=== PATIENT | male | born 1940 | race Caucasian/White ===

== ENCOUNTER 2016-06-15 10:23 | Emergency (ER) | payer BC ==
[2015-11-04 14:21] VITALS: Ht 177.8 cm; Wt 81.6 kg
[~2016-06-15] VITALS: Ht 177.8 cm; Wt 81.6 kg
[~2016-06-15 10:23] MED LIST: CLOT45CR TP; FLEC50TA2 PO; FLUT1DIS3 INH; LISI10TA5 PO; NAPR-238 PO; TAMS-11 PO; TERB250T35 PO
[2016-06-15 10:25] VITALS: BP 117/81; PULSE 95; RESP 18; TEMP 97.8; O2SAT 97
[2016-06-15] MEDS ORDERED: OMEP40CA33 PO (10:51)
[2016-06-15] MEDS ORDERED: POTA1POW11 MC (10:51)
[2016-06-15] MEDS ORDERED: ASPI-1063 PO (10:51)
[2016-06-15] MEDS ORDERED: FERR140T PO (10:51)
[2016-06-15] MEDS ORDERED: CYAN50004 PO (10:51)
[2016-06-15 11:17] LABS: BASOPHILS % (AUTO) 0.2 % (0.0-2.0); EOSINOPHILS # (AUTO) 0.2 K/uL (0.0-0.4); EOSINOPHILS % (AUTO) 2.5 % (0.0-4.0); HEMATOCRIT 27.9 % (36-54); HEMOGLOBIN 9.3 g/dL (14.0-18.0); LYMPHOCYTES # (AUTO) 2.2 K/uL (1.0-5.5); LYMPHOCYTES % (AUTO) 22.4 % (20.5-51.5); MEAN CORPUSCULAR HEMOGLOBIN 31 pg (27-31); MEAN CORPUSCULAR HGB CONC 34 % (32-36); MEAN CORPUSCULAR VOLUME 93 fL (79.0-98.0); MONOCYTES # (AUTO) 0.8 K/uL (0.0-1.0); MONOCYTES % (AUTO) 7.8 % (1.7-9.3); NEUTROPHILS # (AUTO) 6.8 K/uL (1.8-7.7); NEUTROPHILS % (AUTO) 67.1 % (40.0-70.0); PLATELET COUNT (AUTO) 344 K/uL (130-430); RED BLOOD CELL COUNT(AUTO) 2.98 MIL/uL (4.2-6.2); RED CELL DISTRIBUTION WIDTH 13.5 % (9.0-15.0)
[2016-06-15 11:29] LABS: INR 1.1 (0.80-1.20); PROTHROMBIN TIME 11.4 SECS (9.5-12.5)
[2016-06-15 11:31] LABS: ANION GAP 11 (5-15); CHLORIDE 105 mmol/L (98-107); CREATININE 0.96 mg/dL (0.55-1.30); GLUCOSE 100 mg/dL (70-99); POTASSIUM 4.6 mmol/L (3.5-5.1); SODIUM SERUM 139 mmol/L (136-145); UREA NITROGEN, BLOOD 19 mg/dL (8-21)
[2016-06-15 11:34] LABS: TOTAL BILIRUBIN 0.4 mg/dL (0.0-1.0)
[2016-06-15 11:35] LABS: ALANINE AMINOTRANSFERASE 20 U/L (12-78); ALBUMIN 3.9 g/dL (3.4-4.8); ASPARTATE AMINOTRANSFERASE 15 U/L (10-37); TOTAL PROTEIN, SERUM 8.5 g/dL (6.4-8.3)
[2016-06-15] MEDS ORDERED: NS 250 ML IV ONE (13:00)
[2016-06-15 13:24] VITALS: BP 111/64; PULSE 66; RESP 13; TEMP 98; O2SAT 98
== END 2016-06-15 13:24 | disposition home or self-care (01) ==
LOC: SED 10:23
DX: D64.9 Anemia, unspecified (principal); T50.905A Adverse effect of unspecified drugs, medicaments and biological substances, initial encounter; I10 Essential (primary) hypertension; Z86.79 Personal history of other diseases of the circulatory system; Z79.82 Long term (current) use of aspirin; Z79.899 Other long term (current) drug therapy; Y92.89 Other specified places as the place of occurrence of the external cause
CPT/HCPCS: 36415; 71010; 80053; 82272; 85025; 85610; 85730; 86886; 86900; 86901; 93005; 99285; J7040

== ENCOUNTER 2016-07-14 10:11 | Inpatient (IN) | payer BC ==
[2016-07-14] VITALS (8 sets, daily range): BP systolic 111–137
[~2016-07-14] VITALS: Ht 180.3 cm; Wt 81.6 kg
[~2016-07-14 10:11] MED LIST changes: +ASPI-1063 PO; -CLOT45CR TP; +CYAN50004 PO; +FERR140T PO; -NAPR-238 PO; +OMEP40CA33 PO; +POTA1POW11 MC
[2016-07-14] MEDS ORDERED: ONDANSETRON HCL 4 MG/2 ML VIAL IVP ONE (10:30)
[2016-07-14] MEDS ORDERED: MORPHINE 2 MG/ML INJ. SYRINGE IVP ONE (10:30)
[2016-07-14 10:53] LABS: BASOPHILS % (AUTO) 0.3 % (0.0-2.0); EOSINOPHILS # (AUTO) 0.3 K/uL (0.0-0.4); EOSINOPHILS % (AUTO) 2.5 % (0.0-4.0); HEMATOCRIT 22.8 % (36-54); HEMOGLOBIN 7.4 g/dL (14.0-18.0); LYMPHOCYTES # (AUTO) 2.5 K/uL (1.0-5.5); LYMPHOCYTES % (AUTO) 19.9 % (20.5-51.5); MEAN CORPUSCULAR HEMOGLOBIN 29 pg (27-31); MEAN CORPUSCULAR HGB CONC 33 % (32-36); MEAN CORPUSCULAR VOLUME 89 fL (79.0-98.0); MONOCYTES # (AUTO) 0.9 K/uL (0.0-1.0); MONOCYTES % (AUTO) 7.5 % (1.7-9.3); NEUTROPHILS # (AUTO) 8.8 K/uL (1.8-7.7); NEUTROPHILS % (AUTO) 69.8 % (40.0-70.0); PLATELET COUNT (AUTO) 448 K/uL (130-430); RED BLOOD CELL COUNT(AUTO) 2.56 MIL/uL (4.2-6.2); RED CELL DISTRIBUTION WIDTH 13.4 % (9.0-15.0); WHITE BLOOD COUNT (AUTO) 12.4 K/uL (4.8-10.8)
[2016-07-14 11:05] LABS: INR 1.1 (0.80-1.20)
[2016-07-14 11:07] LABS: ANION GAP 8 (5-15); CALCIUM 8.9 mg/dL (8.4-11.0); CHLORIDE 104 mmol/L (98-107); CREATININE 1.01 mg/dL (0.55-1.30); GLUCOSE 98 mg/dL (70-99); POTASSIUM 4.6 mmol/L (3.5-5.1); SODIUM SERUM 137 mmol/L (136-145); UREA NITROGEN, BLOOD 20 mg/dL (8-21)
[2016-07-14 11:12] LABS: ALANINE AMINOTRANSFERASE 23 U/L (12-78); ALBUMIN 3.1 g/dL (3.4-4.8); ASPARTATE AMINOTRANSFERASE 22 U/L (10-37); TOTAL BILIRUBIN 0.3 mg/dL (0.0-1.0); TOTAL PROTEIN, SERUM 7.8 g/dL (6.4-8.3)
[2016-07-14] MEDS ORDERED: NAPR-688 PO (11:21)
[2016-07-14 11:34] LABS: BILIRUBIN,URINE NEGATIVE (NEGATIVE); BLOOD, URINE NEGATIVE (NEGATIVE); CLARITY/URINE CLEAR (CLEAR); COLOR,URINE YELLOW (YELLOW); GLUCOSE,URINE NEGATIVE (NEGATIVE); KETONES,URINE TRACE (NEGATIVE); LEUKOCYTE ESTERASE ,URINE NEGATIVE (NEGATIVE); NITRITE, URINE NEGATIVE (NEGATIVE); PH,URINE 5.5 (5.0-8.0); PROTEIN URINE TRACE (NEGATIVE); UROBILINOGEN,URINE 0.2 (0.2-1.0)
[2016-07-14] MEDS ORDERED: MAGN250T31 PO (11:39)
[2016-07-14] MEDS ORDERED: OMEG300C3 PO (11:39)
[2016-07-14] MEDS ORDERED: IBUP-2101 (11:39)
[2016-07-14 11:47] LABS: BACTERIA,URINE RARE /HPF (None Seen); MUCUS,URINE 1+ /LPF (None Seen); RBC,URINE 0-3 /HPF (0-3); WBC,URINE 0-3 /HPF (0-3)
[2016-07-14] MEDS ORDERED: ACETAMINOPHEN 325 MG TABLET PO PRN (12:45)
[2016-07-14] MEDS ORDERED: ALBUTEROL SULFATE 0.083% 2.5 MG/3 ML VIAL.NEB INH PRN (12:45)
[2016-07-14] MEDS ORDERED: IPRATROPIUM BROM 0.5 MG/2.5 ML VIAL.NEB (ATROVENT) INH PRN (12:45)
[2016-07-14] MEDS ORDERED: MORPHINE 2 MG/ML INJ. SYRINGE ONE (12:54)
[2016-07-14] MEDS ORDERED: IOHEXOL 100 ML IV ONE (13:55)
[2016-07-14] MEDS ORDERED: MIDAZOLAM HCL 5 MG/5 ML VIAL ONE (14:00)
[2016-07-14] MEDS: methylPREDNISolone SOD SUCC/PF 62.5 MG/ML VIAL IVP SCH ×2 (14:00→21:04)
[2016-07-14] MEDS ORDERED: PROPOFOL 200MG/ 20ML VIAL (DIPRIVAN) IV ONE (14:00)
[2016-07-14] MEDS ORDERED: LR 1,000 ML IV.SOLN IV ONE (14:00)
[2016-07-14 15:06] LABS: IRON (SERUM) 14 mcg/dL (59-158); TOTAL IRON BIND. CAPACITY 169 ug/dL (250-450)
[2016-07-14] MEDS: ALBUTEROL SULFATE 0.083% 2.5 MG/3 ML VIAL.NEB INH SCH ×2 (15:49→21:00)
[2016-07-14] MEDS: IPRATROPIUM BROM 0.5 MG/2.5 ML VIAL.NEB (ATROVENT) INH SCH ×2 (15:50→21:00)
[2016-07-14] MEDS ORDERED: HYDROcodone/ACETAMIN 5-325 MG TAB (NORCO/ VICODIN) PO PRN (16:15)
[2016-07-14] MEDS ORDERED: LR 1,000 ML IV SCH (16:50)
[2016-07-14] MEDS ORDERED: METOCLOPRAMIDE HCL 10 MG/2 ML VIAL IVP PRN (17:00)
[2016-07-14] MEDS ORDERED: MORPHINE 2 MG/ML INJ. SYRINGE IVP PRN ×3 (17:00)
[2016-07-14] MEDS: SIMETHICONE 80 MG TAB.CHEW PO PRN (18:21)
[2016-07-14] MEDS: FLUTICASONE/VILANTEROL 1 EACH BLST.W.DEV INH SCH (21:01)
[2016-07-14] MEDS: FLECAINIDE ACETATE 50 MG TABLET (TAMBOCOR) PO SCH (21:03)
[2016-07-15] VITALS: BP_SYST 104
[2016-07-15] MEDS: SIMETHICONE 80 MG TAB.CHEW PO PRN ×2 (01:56→21:03)
[2016-07-15 04:00] VITALS: BP_SYST 130
[2016-07-15] MEDS: MORPHINE 2 MG/ML INJ. SYRINGE IVP PRN (04:05)
[2016-07-15] MEDS: methylPREDNISolone SOD SUCC/PF 62.5 MG/ML VIAL IVP SCH ×3 (06:19→21:03)
[2016-07-15 07:04] LABS: BASOPHILS % (AUTO) 0.2 % (0.0-2.0); EOSINOPHILS % (AUTO) 0.1 % (0.0-4.0); HEMATOCRIT 25.8 % (36-54); HEMOGLOBIN 8.5 g/dL (14.0-18.0); LYMPHOCYTES % (AUTO) 8.9 % (20.5-51.5); MEAN CORPUSCULAR HEMOGLOBIN 30 pg (27-31); MEAN CORPUSCULAR HGB CONC 33 % (32-36); MEAN CORPUSCULAR VOLUME 90 fL (79.0-98.0); MONOCYTES # (AUTO) 0.1 K/uL (0.0-1.0); MONOCYTES % (AUTO) 1.3 % (1.7-9.3); NEUTROPHILS # (AUTO) 9.7 K/uL (1.8-7.7); NEUTROPHILS % (AUTO) 89.5 % (40.0-70.0); PLATELET COUNT (AUTO) 378 K/uL (130-430); RED BLOOD CELL COUNT(AUTO) 2.87 MIL/uL (4.2-6.2); RED CELL DISTRIBUTION WIDTH 13.4 % (9.0-15.0); WHITE BLOOD COUNT (AUTO) 10.8 K/uL (4.8-10.8)
[2016-07-15] MEDS: IPRATROPIUM BROM 0.5 MG/2.5 ML VIAL.NEB (ATROVENT) INH SCH ×4 (07:37→19:53)
[2016-07-15] MEDS: ALBUTEROL SULFATE 0.083% 2.5 MG/3 ML VIAL.NEB INH SCH ×4 (07:37→19:53)
[2016-07-15 08:00] VITALS: BP_SYST 112
[2016-07-15] MEDS: OMEPRAZOLE 20 MG CAPSULE.DR (PriLOSEC) PO SCH (09:26)
[2016-07-15] MEDS: FERROUS SULFATE 325 MG TABLET.DR PO SCH (09:26)
[2016-07-15] MEDS: FLUTICASONE/VILANTEROL 1 EACH BLST.W.DEV INH SCH ×2 (09:26→21:00)
[2016-07-15] MEDS: FLECAINIDE ACETATE 50 MG TABLET (TAMBOCOR) PO SCH ×2 (09:29→21:14)
[2016-07-15] MEDS: MORPHINE 4 MG/ML INJ. SYRINGE IVP PRN ×3 (09:49→21:03)
[2016-07-15 12:05] VITALS: BP_SYST 117
[2016-07-15 12:11] LABS: FOLATE (FOLIC ACID) >20.0 ng/mL (>3.0)
[2016-07-15] MEDS: cefTRIAXone 1 GM IVPB PREMIX 50 ML IV SCH (14:31)
[2016-07-15] MEDS: AZITHROMYCIN 500 MG in NS 250 ML IV SCH (15:25)
[2016-07-15 16:30] VITALS: BP_SYST 107
[2016-07-15 20:06] VITALS: BP_SYST 99
[2016-07-15] MEDS: LORazepam 1 MG TABLET PO PRN (21:04)
[2016-07-16 00:49] VITALS: BP_SYST 91
[2016-07-16] MEDS: MORPHINE 4 MG/ML INJ. SYRINGE IVP PRN ×3 (01:22→16:49)
[2016-07-16 04:00] VITALS: BP_SYST 107
[2016-07-16] MEDS: methylPREDNISolone SOD SUCC/PF 62.5 MG/ML VIAL IVP SCH ×3 (05:19→21:16)
[2016-07-16] MEDS: LORazepam 1 MG TABLET PO PRN ×2 (05:39→21:26)
[2016-07-16 06:42] LABS: BASOPHILS % (AUTO) 0.1 % (0.0-2.0); HEMATOCRIT 24.8 % (36-54); HEMOGLOBIN 8.2 g/dL (14.0-18.0); LYMPHOCYTES # (AUTO) 1.4 K/uL (1.0-5.5); LYMPHOCYTES % (AUTO) 5.1 % (20.5-51.5); MEAN CORPUSCULAR HEMOGLOBIN 30 pg (27-31); MEAN CORPUSCULAR HGB CONC 33 % (32-36); MEAN CORPUSCULAR VOLUME 91 fL (79.0-98.0); MONOCYTES # (AUTO) 0.7 K/uL (0.0-1.0); MONOCYTES % (AUTO) 2.5 % (1.7-9.3); NEUTROPHILS # (AUTO) 25.8 K/uL (1.8-7.7); NEUTROPHILS % (AUTO) 92.3 % (40.0-70.0); PLATELET COUNT (AUTO) 385 K/uL (130-430); RED BLOOD CELL COUNT(AUTO) 2.74 MIL/uL (4.2-6.2); RED CELL DISTRIBUTION WIDTH 13.6 % (9.0-15.0); WHITE BLOOD COUNT (AUTO) 27.9 K/uL (4.8-10.8)
[2016-07-16] MEDS: cefTRIAXone 1 GM IVPB PREMIX 50 ML IV SCH (09:06)
[2016-07-16] MEDS: OMEPRAZOLE 20 MG CAPSULE.DR (PriLOSEC) PO SCH (09:10)
[2016-07-16] MEDS: FLECAINIDE ACETATE 50 MG TABLET (TAMBOCOR) PO SCH ×2 (09:10→21:14)
[2016-07-16] MEDS: FERROUS SULFATE 325 MG TABLET.DR PO SCH (09:10)
[2016-07-16] MEDS: FLUTICASONE/VILANTEROL 1 EACH BLST.W.DEV INH SCH ×2 (09:11→21:00)
[2016-07-16] MEDS: ALBUTEROL SULFATE 0.083% 2.5 MG/3 ML VIAL.NEB INH SCH ×3 (09:41→15:40)
[2016-07-16] MEDS: IPRATROPIUM BROM 0.5 MG/2.5 ML VIAL.NEB (ATROVENT) INH SCH ×3 (09:42→15:41)
[2016-07-16] MEDS: AZITHROMYCIN 500 MG in NS 250 ML IV SCH (11:16)
[2016-07-16 12:29] VITALS: BP_SYST 111
[2016-07-16] MEDS ORDERED: SENNOSIDES/DOCUSATE SODIUM 1 TAB TABLET(SENOKOT-S) PO ONE (14:15)
[2016-07-16 16:50] VITALS: BP_SYST 127
[2016-07-16] MEDS: IPRATROPIUM/ALBUTEROL SULFATE 3 ML AMPUL.NEB INH SCH ×2 (19:21→23:30)
[2016-07-16 20:36] VITALS: BP_SYST 118
[2016-07-16] MEDS: MORPHINE 2 MG/ML INJ. SYRINGE IVP PRN (21:27)
[2016-07-17] MEDS: MORPHINE 2 MG/ML INJ. SYRINGE IVP PRN (03:29)
[2016-07-17] MEDS: IPRATROPIUM/ALBUTEROL SULFATE 3 ML AMPUL.NEB INH SCH ×6 (03:30→23:20)
[2016-07-17] MEDS: methylPREDNISolone SOD SUCC/PF 62.5 MG/ML VIAL IVP SCH (05:38)
[2016-07-17] MEDS: LORazepam 1 MG TABLET PO PRN (05:42)
[2016-07-17 07:18] LABS: HEMATOCRIT 26.1 % (36-54); HEMOGLOBIN 8.7 g/dL (14.0-18.0); MEAN CORPUSCULAR HEMOGLOBIN 30 pg (27-31); MEAN CORPUSCULAR HGB CONC 34 % (32-36); MEAN CORPUSCULAR VOLUME 91 fL (79.0-98.0); PLATELET COUNT (AUTO) 382 K/uL (130-430); RED BLOOD CELL COUNT(AUTO) 2.87 MIL/uL (4.2-6.2); RED CELL DISTRIBUTION WIDTH 13.9 % (9.0-15.0)
[2016-07-17 07:45] LABS: WHITE BLOOD COUNT (AUTO) 28.8 K/uL (4.8-10.8)
[2016-07-17 08:00] VITALS: BP_SYST 151
[2016-07-17] MEDS: FLUTICASONE/VILANTEROL 1 EACH BLST.W.DEV INH SCH ×2 (09:00→21:30)
[2016-07-17] MEDS: FERROUS SULFATE 325 MG TABLET.DR PO SCH (09:09)
[2016-07-17] MEDS: OMEPRAZOLE 20 MG CAPSULE.DR (PriLOSEC) PO SCH (09:09)
[2016-07-17] MEDS: AZITHROMYCIN 500 MG in NS 250 ML IV SCH (09:12)
[2016-07-17] MEDS: cefTRIAXone 1 GM IVPB PREMIX 50 ML IV SCH (09:12)
[2016-07-17] MEDS: FLECAINIDE ACETATE 50 MG TABLET (TAMBOCOR) PO SCH ×2 (09:12→21:48)
[2016-07-17 10:43] LABS: ATYPICAL LYMPHOCYTES % 0 % (0-0); BAND % (MANUAL) 0 % (0-6); BASOPHILS % (MANUAL) 0 % (0-2); EOSINOPHILS % (MANUAL) 0 % (0-7); LYMPHOCYTES % (MANUAL) 5 % (20-46); MONOCYTES % (MANUAL) 4 % (0-11)
[2016-07-17] MEDS: MORPHINE 4 MG/ML INJ. SYRINGE IVP PRN ×3 (11:57→22:32)
[2016-07-17 12:14] VITALS: BP_SYST 143
[2016-07-17] MEDS: PIPERACILLIN/TAZO 3.375/DEX-IS 50 ML IV SCH ×2 (13:01→17:21)
[2016-07-17] MEDS ORDERED: DIATR MEGLU/DIATRIZ SOD 30 ML SOLUTION PO ONE (13:22)
[2016-07-17] MEDS ORDERED: guaiFENesin 200 MG/CODEINE 20 MG/ 10 ML UDC PO PRN (13:45)
[2016-07-17 16:13] VITALS: BP_SYST 136
[2016-07-17 16:32] LABS: ALANINE AMINOTRANSFERASE 31 U/L (12-78); ALBUMIN 2.8 g/dL (3.4-4.8); ANION GAP 9 (5-15); ASPARTATE AMINOTRANSFERASE 18 U/L (10-37); CALCIUM 8.2 mg/dL (8.4-11.0); CHLORIDE 104 mmol/L (98-107); CREATININE 1.01 mg/dL (0.55-1.30); GLUCOSE 215 mg/dL (70-99); POTASSIUM 4.2 mmol/L (3.5-5.1); SODIUM SERUM 138 mmol/L (136-145); TOTAL BILIRUBIN 0.2 mg/dL (0.0-1.0); TOTAL PROTEIN, SERUM 7.1 g/dL (6.4-8.3); UREA NITROGEN, BLOOD 24 mg/dL (8-21)
[2016-07-17 19:47] VITALS: BP_SYST 128
[2016-07-18 00:13] VITALS: BP_SYST 120
[2016-07-18] MEDS: PIPERACILLIN/TAZO 3.375/DEX-IS 50 ML IV SCH ×2 (00:41→05:17)
[2016-07-18] MEDS: IPRATROPIUM/ALBUTEROL SULFATE 3 ML AMPUL.NEB INH SCH ×3 (03:00→11:20)
[2016-07-18] MEDS: MORPHINE 4 MG/ML INJ. SYRINGE IVP PRN ×2 (04:08→09:33)
[2016-07-18 04:10] VITALS: BP_SYST 122
[2016-07-18] MEDS: LORazepam 1 MG TABLET PO PRN (04:16)
[2016-07-18 06:48] LABS: BASOPHILS % (AUTO) 0.1 % (0.0-2.0); EOSINOPHILS % (AUTO) 0.1 % (0.0-4.0); HEMATOCRIT 25.7 % (36-54); HEMOGLOBIN 8.7 g/dL (14.0-18.0); LYMPHOCYTES # (AUTO) 1.6 K/uL (1.0-5.5); LYMPHOCYTES % (AUTO) 6.8 % (20.5-51.5); MEAN CORPUSCULAR HEMOGLOBIN 31 pg (27-31); MEAN CORPUSCULAR HGB CONC 34 % (32-36); MEAN CORPUSCULAR VOLUME 91 fL (79.0-98.0); MONOCYTES # (AUTO) 1.4 K/uL (0.0-1.0); MONOCYTES % (AUTO) 5.8 % (1.7-9.3); NEUTROPHILS # (AUTO) 20.7 K/uL (1.8-7.7); NEUTROPHILS % (AUTO) 87.2 % (40.0-70.0); PLATELET COUNT (AUTO) 388 K/uL (130-430); RED BLOOD CELL COUNT(AUTO) 2.83 MIL/uL (4.2-6.2); RED CELL DISTRIBUTION WIDTH 14.3 % (9.0-15.0); WHITE BLOOD COUNT (AUTO) 23.7 K/uL (4.8-10.8)
[2016-07-18 07:27] LABS: ALANINE AMINOTRANSFERASE 27 U/L (12-78); ALBUMIN 2.6 g/dL (3.4-4.8); ANION GAP 8 (5-15); ASPARTATE AMINOTRANSFERASE 14 U/L (10-37); CALCIUM 8.3 mg/dL (8.4-11.0); CHLORIDE 102 mmol/L (98-107); CREATININE 1.03 mg/dL (0.55-1.30); GLUCOSE 191 mg/dL (70-99); POTASSIUM 4.2 mmol/L (3.5-5.1); SODIUM SERUM 136 mmol/L (136-145); TOTAL BILIRUBIN 0.2 mg/dL (0.0-1.0); TOTAL PROTEIN, SERUM 6.6 g/dL (6.4-8.3); UREA NITROGEN, BLOOD 20 mg/dL (8-21)
[2016-07-18 08:00] VITALS: BP_SYST 124
[2016-07-18] MEDS ORDERED: DIATR MEGLU/DIATRIZ SOD 30 ML SOLUTION PO ONE (08:32)
[2016-07-18] MEDS ORDERED: LACTOBACILLUS RHAMNOSUS GG 1 CAP CAPSULE PO SCH (09:00)
[2016-07-18] MEDS ORDERED: PREDNISONE 20 MG TABLET PO SCH (09:00)
[2016-07-18] MEDS: OMEPRAZOLE 20 MG CAPSULE.DR (PriLOSEC) PO SCH (09:31)
[2016-07-18] MEDS: FLECAINIDE ACETATE 50 MG TABLET (TAMBOCOR) PO SCH (09:32)
[2016-07-18] MEDS: FLUTICASONE/VILANTEROL 1 EACH BLST.W.DEV INH SCH (09:40)
[2016-07-18] MEDS: FERROUS SULFATE 325 MG TABLET.DR PO SCH (09:40)
[2016-07-18 10:26] VITALS: BP_SYST 124
[2016-07-18] MEDS ORDERED: IOHEXOL 100 ML IV ONE (11:01)
[2016-07-18 12:15] VITALS: BP_SYST 132
[2016-07-18] MEDS: HYDROcodone/ACETAMIN 10-325 MG TAB PO PRN ×2 (12:42→14:17)
== END 2016-07-18 14:30 | disposition home or self-care (01) | DRG 824 ==
LOC: SED 10:11 → SMU 12:16 → STU 12:30 → SMU 19:32
PROVIDERS: ADMIT Internal Medicine Hospice and Palliative Medicine; ATTEND Internal Medicine Hospice and Palliative Medicine
PROC: 30233N1 Transfusion of Nonautologous Red Blood Cells into Peripheral Vein, Percutaneous Approach (ICD-10-PCS; 2016-07-14)
PROC: 07B20ZX Excision of Left Neck Lymphatic, Open Approach, Diagnostic (ICD-10-PCS; principal; 2016-07-14 17:30)
DX: C77.0 Secondary and unspecified malignant neoplasm of lymph nodes of head, face and neck (principal); C34.11 Malignant neoplasm of upper lobe, right bronchus or lung; N40.0 Benign prostatic hyperplasia without lower urinary tract symptoms; F17.210 Nicotine dependence, cigarettes, uncomplicated; J44.9 Chronic obstructive pulmonary disease, unspecified; I10 Essential (primary) hypertension; D64.9 Anemia, unspecified; D72.829 Elevated white blood cell count, unspecified
CPT/HCPCS: 36415; 71010; 71020-TC; 71275; 80053; 81000-TC; 82607; 82746; 83540-TC; 83550-TC; 83880; 84484; 85007; 85025; 85027; 85379; 85610-TC; 85730-TC; 86886; 86900; 86901; 86920; 87040-TC; 87081; 88307; 88313; 88341; 88342; 93005; 93306; 93970; 94640; 94760; 96374; 96375; 99285; J0456; J0696; J2250; J2270; J2405; J2543; J2704; J2930; J7050; J7120; J7512; P9021; Q9964; Q9967

== ENCOUNTER 2016-08-02 15:09 | Inpatient (IN) | payer BC ==
[~2016-08-02] VITALS: Ht 170.2 cm; Wt 78.5 kg
[~2016-08-02 15:09] MED LIST changes: +IBUP-2101; -LISI10TA5 PO; +MAGN250T31 PO; +NAPR-688 PO; +OMEG300C3 PO; -TERB250T35 PO
[2016-08-02 15:14] VITALS: BP_SYST 113
[2016-08-02] MEDS ORDERED: ONDANSETRON HCL 4 MG/2 ML VIAL IVP ONE (15:15)
[2016-08-02 15:53] LABS: BASOPHILS % (AUTO) 0.4 % (0.0-2.0); EOSINOPHILS # (AUTO) 0.3 K/uL (0.0-0.4); EOSINOPHILS % (AUTO) 2.9 % (0.0-4.0); HEMATOCRIT 27.8 % (36-54); HEMOGLOBIN 9.2 g/dL (14.0-18.0); LYMPHOCYTES # (AUTO) 1.7 K/uL (1.0-5.5); LYMPHOCYTES % (AUTO) 14.6 % (20.5-51.5); MEAN CORPUSCULAR HEMOGLOBIN 29 pg (27-31); MEAN CORPUSCULAR HGB CONC 33 % (32-36); MEAN CORPUSCULAR VOLUME 89 fL (79.0-98.0); MONOCYTES # (AUTO) 1.1 K/uL (0.0-1.0); MONOCYTES % (AUTO) 9.3 % (1.7-9.3); NEUTROPHILS # (AUTO) 8.5 K/uL (1.8-7.7); NEUTROPHILS % (AUTO) 72.8 % (40.0-70.0); PLATELET COUNT (AUTO) 403 K/uL (130-430); RED BLOOD CELL COUNT(AUTO) 3.12 MIL/uL (4.2-6.2); WHITE BLOOD COUNT (AUTO) 11.6 K/uL (4.8-10.8)
[2016-08-02 16:09] LABS: ANION GAP 5 (5-15); CALCIUM 8.4 mg/dL (8.4-11.0); CHLORIDE 99 mmol/L (98-107); CREATININE 1.15 mg/dL (0.55-1.30); GLUCOSE 83 mg/dL (70-99); POTASSIUM 4.4 mmol/L (3.5-5.1); SODIUM SERUM 131 mmol/L (136-145); UREA NITROGEN, BLOOD 28 mg/dL (8-21)
[2016-08-02 16:13] LABS: ALANINE AMINOTRANSFERASE 29 U/L (12-78); ALBUMIN 2.7 g/dL (3.4-4.8); AMYLASE 26 U/L (0-100); ASPARTATE AMINOTRANSFERASE 21 U/L (10-37); LIPASE 47 U/L (73-393)
[2016-08-02 16:19] LABS: INR 1.1 (0.80-1.20)
[2016-08-02] MEDS ORDERED: KETOROLAC TROMETHAMINE 30 MG VIAL IVP ONE (16:45)
[2016-08-02] MEDS ORDERED: NACL 0.9% 1,000 ML IV ONE (16:45)
[2016-08-02] MEDS ORDERED: GOLYTELY / COLYTE SOLUTION 4 LITERS PO ONE (17:00)
[2016-08-02] MEDS ORDERED: OMEG1CAP98 PO (17:13)
[2016-08-02] MEDS ORDERED: FLAX100031 PO (17:13)
[2016-08-02] MEDS ORDERED: VITA400C19 PO (17:13)
[2016-08-02] MEDS ORDERED: CALC-226 PO (17:13)
[2016-08-02] MEDS ORDERED: GLUC-138 PO (17:13)
[2016-08-02] MEDS ORDERED: GINK120C PO (17:13)
[2016-08-02 17:28] VITALS: BP_SYST 100
[2016-08-02 19:20] VITALS: BP_SYST 97
[2016-08-02 19:50] VITALS: BP_SYST 97
[2016-08-02] MEDS: LACTULOSE 20 GM/30 ML UDC PO SCH ×2 (22:36→22:40)
[2016-08-02 23:32] VITALS: BP_SYST 90
[2016-08-03 04:14] VITALS: BP_SYST 106
[2016-08-03 08:49] VITALS: BP_SYST 106
[2016-08-03] MEDS: LACTULOSE 20 GM/30 ML UDC PO SCH ×4 (10:50→20:13)
[2016-08-03] MEDS: POLYETHYLENE GLYCOL 3350, 17 GM/ POWD.PACK PO SCH (10:51)
[2016-08-03] MEDS ORDERED: HYDROcodone/ACETAMIN 5-325 MG TAB (NORCO/ VICODIN) PO PRN (11:00)
[2016-08-03 12:00] VITALS: BP_SYST 127
[2016-08-03 16:00] VITALS: BP_SYST 100
[2016-08-03] MEDS: HYDROcodone/ACETAMIN 5-325 MG TAB (NORCO/ VICODIN) PO PRN ×2 (16:21→22:12)
[2016-08-03 20:00] VITALS: BP_SYST 102
[2016-08-03 23:45] VITALS: BP_SYST 106
[2016-08-04] MEDS: HYDROcodone/ACETAMIN 5-325 MG TAB (NORCO/ VICODIN) PO PRN (02:19)
[2016-08-04 04:20] VITALS: BP_SYST 99
[2016-08-04 07:50] VITALS: BP_SYST 100
[2016-08-04] MEDS: LACTULOSE 20 GM/30 ML UDC PO SCH ×3 (08:30→17:00)
[2016-08-04] MEDS: POLYETHYLENE GLYCOL 3350, 17 GM/ POWD.PACK PO SCH (08:30)
[2016-08-04] MEDS: HYDROmorphone 1 MG INJ. 1 MG/ML AMPUL IVP PRN ×2 (08:35→15:02)
[2016-08-04 12:38] VITALS: BP_SYST 109
[2016-08-04] MEDS ORDERED: HYDR2TAB34 PO (13:52)
[2016-08-04] MEDS ORDERED: SENN-153 PO (13:52)
[2016-08-04 16:11] VITALS: BP_SYST 108
[2016-08-04 16:23] VITALS: BP_SYST 108
== END 2016-08-04 17:35 | disposition home or self-care (01) | DRG 436 ==
LOC: SED 15:09 → SMU 16:58
PROVIDERS: ADMIT Internal Medicine Hospice and Palliative Medicine; ATTEND Internal Medicine Hospice and Palliative Medicine
DX: C78.7 Secondary malignant neoplasm of liver and intrahepatic bile duct (principal); C34.90 Malignant neoplasm of unspecified part of unspecified bronchus or lung; C77.0 Secondary and unspecified malignant neoplasm of lymph nodes of head, face and neck; K59.03 Drug induced constipation; F17.200 Nicotine dependence, unspecified, uncomplicated; J44.9 Chronic obstructive pulmonary disease, unspecified; R16.0 Hepatomegaly, not elsewhere classified; Y92.89 Other specified places as the place of occurrence of the external cause; T40.2X5A Adverse effect of other opioids, initial encounter
CPT/HCPCS: 36415; 70551; 80053; 82150-TC; 83605; 83690-TC; 85025; 85610-TC; 85730-TC; 86886; 86900; 86901; 87040-TC; 87081; 93005; 96361; 96374; 96375; 99285; J1170; J1885; J2405; J7030